=== PATIENT | male | born 1955 | race Caucasian/White ===

== ENCOUNTER 2019-10-14 12:47 | Emergency (ER) | payer OTHER, BC ==
[~2019-10-14] VITALS: Ht 175.3 cm; Wt 64.4 kg
[2019-10-14 14:26] VITALS: BP 120/76
--- NOTE | 2019-10-14 14:26 | NUR ---
Patient discharged to home in stable conditon. Written and verbal after care instructions given. Patient verbalizes understanding of instructions. Patient aambulated with stable gait.
== END 2019-10-14 14:27 | disposition home or self-care (01) ==
LOC: ER 12:47
DX: S00.03XA Contusion of scalp, initial encounter (principal); V43.52XA Car driver injured in collision with other type car in traffic accident, initial encounter; Y93.89 Activity, other specified; Y92.410 Unspecified street and highway as the place of occurrence of the external cause; Y99.8 Other external cause status
CPT/HCPCS: 70450; A4663